=== PATIENT | male | born 1980 | race Caucasian/White ===

== ENCOUNTER 2021-03-10 13:45 | Outpatient (CLI) | payer BC, SELFPAY ==
[2021-03-10] MEDS: 0.9% Saline Lock 10 ML Syringe IV (14:08)
[2021-03-10 14:09] VITALS: BP 137/84; PULSE 85; RESP 16; TEMP 36.7; O2SAT 95; BMI 30.4
[2021-03-10 15:03] VITALS: BP 133/76; PULSE 81; RESP 16; TEMP 36.6; O2SAT 98
[2021-03-10 15:50] VITALS: BP 151/97; PULSE 89; RESP 16; TEMP 36.8; O2SAT 98
== END 2021-03-10 15:55 | disposition home or self-care (01) ==
LOC: MS3OUT 13:45 → MS3 13:46
PROVIDERS: Referring Provider Nurse Practitioner Acute Care; Visit Provider Nurse Practitioner Acute Care
DX: Z23 Encounter for immunization (principal); U07.1 COVID-19; I10 Essential (primary) hypertension
CPT/HCPCS: J7050; M0245; Q0245; A4216